=== PATIENT | male | born 1935 | race Two or more races ===

== ENCOUNTER 2016-08-15 17:14 | Emergency (ER) | payer OTHER ==
[~2016-08-15] VITALS: Ht 170.2 cm; Wt 77.1 kg
[2016-08-15 17:26] VITALS: BP 111/71
[2016-08-15 17:45] LABS: Basophils # (auto) 0 uL; Basophils % (auto) 0.3 % (0.0-2.0); Eosinophils # (auto) 0.2 uL; Eosinophils % (auto) 1.7 % (0.0-7.0); Hemoglobin 11.2 g/dL (13.5-17.5); Lymphocytes # (auto) 1.7 uL; Mean Corpuscular Hemoglobin 30.2 pg (28.0-32.0); Mean Corpuscular Hgb Conc. 31.1 g/dL (32.0-36.0); Mean Corpuscular Volume 96.9 fL (80.0-100.0); Mean Platelet Volume 8.1 fL (7.4-10.4); Monocytes # (auto) 0.8 uL; Monocytes % (auto) 8.2 % (0.0-12.0); Neutrophils # (auto) 7.4 uL; Neutrophils % (auto) 72.8 % (37.0-80.0); Platelet Count (auto) 365 10^3/uL (140-450); Red Cell Distribution Width 14.2 % (11.6-16.0); White Blood Cell 10.1 10^3/uL (4.4-10.8)
[2016-08-15 18:04] LABS: Albumin 3.6 g/dL (3.4-5.0); BUN/Creatinine Ratio 14.3; Calcium 8.7 mg/dL (8.5-10.1); Potassium 4.7 mmol/L (3.5-5.1)
[2016-08-15 18:07] LABS: Bilirubin, Total 0.4 mg/dL (0.2-1.0); Total Protein 7.5 g/dL (6.4-8.2)
== END 2016-08-15 21:39 | disposition left against medical advice (07) ==
LOC: ER 17:22
DX: R05 Cough (principal); Z53.21 Procedure and treatment not carried out due to patient leaving prior to being seen by health care provider
CPT/HCPCS: 36415; 71020; 80053; 85025

== ENCOUNTER 2018-02-15 11:43 | Inpatient (IN) | payer OTHER ==
[~2018-02-15] VITALS: Ht 170.2 cm; Wt 72.0 kg
[2018-02-15 12:35] LABS: Basophils # (auto) 0.2 uL; Eosinophils # (auto) 0 uL; Lymphocytes # (auto) 0.3 uL; Monocytes # (auto) 0.8 uL; Red Cell Distribution Width 15.1 % (11.8-14.3)
[2018-02-15 12:38] LABS: Basophils % (auto) 0.7 % (0.0-2.0); Hematocrit 24.7 % (41.0-53.0); Hemoglobin 8.6 g/dL (13.5-17.5); Lymphocytes % (auto) 1.2 % (10.0-50.0); Mean Corpuscular Hemoglobin 32.9 pg (28.0-32.0); Mean Corpuscular Hgb Conc. 34.7 g/dL (32.0-36.0); Mean Corpuscular Volume 94.9 fL (80.0-100.0); Monocytes % (auto) 3.3 % (0.0-12.0); Neutrophils % (auto) 94.8 % (37.0-80.0); Platelet Count (auto) 374 10^3/uL (140-450); White Blood Cell 25.3 10^3/uL (4.4-10.8)
[2018-02-15] MEDS ORDERED: SODIUM CHLORIDE 0.9% 1,000 ML IVB ONE (12:40)
[2018-02-15] MEDS ORDERED: ACETAMINOPHEN 325 MG TAB PO ONE (12:45)
[2018-02-15 12:56] LABS: Albumin 2.1 g/dL (3.4-5.0); BUN/Creatinine Ratio 11.5; Calcium 7.3 mg/dL (8.5-10.1); Potassium 4.4 mmol/L (3.5-5.1)
[2018-02-15] MEDS ORDERED: cefTRIAXone 1GM/10ml IVPUSH 10 ML IV ONE (13:00)
[2018-02-15 13:10] LABS: INR 1.05 (0.9-1.15); Partial Thromboplastin Time 28.3 sec (23.78-33.04); Prothrombin Time 11.2 sec (9.27-12.13)
[2018-02-15 13:12] LABS: Total Protein 6.7 g/dL (6.4-8.2)
[2018-02-15] MEDS: MAGNESIUM SULFATE 1GM/100ML 100 ML IV SCH ×3 (13:43→16:39)
[2018-02-15] MEDS ORDERED: NITROGLYCERIN 0.4 MG SL TAB SL PRN (15:45)
[2018-02-15] MEDS ORDERED: PROMETHAZINE HCL 25 MG/ML 1ML IV PRN (15:45)
[2018-02-15] MEDS ORDERED: ALBUTEROL SULF 2.5 MG/0.5ML(0.5%) NEB SOLN NEB PRN (15:45)
[2018-02-15] MEDS ORDERED: PIPERACILLIN-TAZOB 2.25GM 50 ML IV ONE (15:45)
[2018-02-15] MEDS ORDERED: LORazepam 2MG/ML-1ML VIAL IV PRN (15:45)
[2018-02-15] MEDS ORDERED: MORPHINE SULF INJ 2 MG/ML SYRINGE 1ML IV PRN (15:45)
[2018-02-15 16:08] VITALS: BP 85/37
[2018-02-15 16:11] LABS: Amylase 40 U/L (25-115); Lipase 118 U/L (73-393)
[2018-02-15] MEDS: SODIUM CHLORIDE 0.9% 1,000 ML IV SCH (16:43)
[2018-02-15] MEDS: LINEZOLID 600MG/300ML 300 ML IV SCH ×2 (17:04→22:00)
[2018-02-15] MEDS: PIPERACILLIN-TAZOB 2.25GM 50 ML IV SCH (18:00)
[2018-02-16] VITALS (28 sets, daily range): BP systolic 95–132; BP diastolic 50–79
[2018-02-16] MEDS: PIPERACILLIN-TAZOB 2.25GM 50 ML IV SCH ×4 (00:54→22:41)
[2018-02-16 03:55] LABS: Eosinophils # (auto) 0 uL; Eosinophils % (auto) 0.1 % (0.0-7.0); Hematocrit 21.8 % (41.0-53.0); Hemoglobin 7.1 g/dL (13.5-17.5); Mean Corpuscular Hemoglobin 31.1 pg (28.0-32.0); Monocytes # (auto) 0.9 uL; Red Blood Cells 2.29 10^6/uL (4.5-5.90)
[2018-02-16 03:57] LABS: Basophils # (auto) 0.1 uL; Basophils % (auto) 0.4 % (0.0-2.0); Lymphocytes # (auto) 1.5 uL; Lymphocytes % (auto) 7.3 % (10.0-50.0); Mean Corpuscular Hgb Conc. 32.8 g/dL (32.0-36.0); Monocytes % (auto) 4.2 % (0.0-12.0); Neutrophils # (auto) 18.5 uL; Platelet Count (auto) 290 10^3/uL (140-450)
[2018-02-16 04:09] LABS: Urine Bacteria NONE SEEN /hpf (None Seen); Urine Blood 3+ /uL (Negative); Urine WBC 14 /hpf (0 - 3)
[2018-02-16 04:38] LABS: Albumin 1.7 g/dL (3.4-5.0); BUN/Creatinine Ratio 12.5; Bilirubin, Total 2.1 mg/dL (0.2-1.0); Calcium 7.1 mg/dL (8.5-10.1); Potassium 4.4 mmol/L (3.5-5.1)
[2018-02-16] MEDS: SODIUM CHLORIDE 0.9% 1,000 ML IV SCH ×3 (06:22→16:24)
[2018-02-16] MEDS: HYDROmorphone HCL 2 MG/ML VL IV PRN ×2 (08:54→21:05)
[2018-02-16] MEDS: LINEZOLID 600MG/300ML 300 ML IV SCH ×2 (11:00→22:00)
[2018-02-16] MEDS: ENOXAPARIN SOD 30 MG/0.3 ML SYRINGE SC SCH (11:00)
[2018-02-16] MEDS ORDERED: HYDROcodone-ACET 10/325MG TAB PO PRN (13:00)
[2018-02-16] MEDS: ASPirin-EC 325mg tab PO SCH (14:30)
[2018-02-16] MEDS ORDERED: ATORVASTATIN 20 MG TAB PO SCH (22:00)
[2018-02-17] VITALS (26 sets, daily range): BP systolic 100–152; BP diastolic 52–90
[2018-02-17] MEDS: SODIUM CHLORIDE 0.9% 1,000 ML IV SCH ×2 (04:20→09:16)
[2018-02-17 04:26] LABS: Basophils # (auto) 0.1 uL; Basophils % (auto) 0.8 % (0.0-2.0); Eosinophils # (auto) 0.2 uL; Eosinophils % (auto) 1.5 % (0.0-7.0); Hemoglobin 8.5 g/dL (13.5-17.5); Lymphocytes # (auto) 1.1 uL; Lymphocytes % (auto) 9.3 % (10.0-50.0); Mean Corpuscular Hemoglobin 30.4 pg (28.0-32.0); Mean Corpuscular Hgb Conc. 32.6 g/dL (32.0-36.0); Mean Corpuscular Volume 93.1 fL (80.0-100.0); Monocytes # (auto) 0.7 uL; Monocytes % (auto) 5.7 % (0.0-12.0); Neutrophils # (auto) 10.1 uL; Neutrophils % (auto) 82.7 % (37.0-80.0); Platelet Count (auto) 313 10^3/uL (140-450); Red Blood Cells 2.79 10^6/uL (4.5-5.90); White Blood Cell 12.2 10^3/uL (4.4-10.8)
[2018-02-17 04:39] LABS: BUN/Creatinine Ratio 13.8; Calcium 7.4 mg/dL (8.5-10.1); Magnesium 1.9 mg/dL (1.6-2.6); Potassium 4.4 mmol/L (3.5-5.1)
[2018-02-17] MEDS: PIPERACILLIN-TAZOB 2.25GM 50 ML IV SCH ×2 (05:44→14:25)
[2018-02-17] MEDS: ASPirin-EC 325mg tab PO SCH (10:20)
[2018-02-17] MEDS: ENOXAPARIN SOD 30 MG/0.3 ML SYRINGE SC SCH (10:20)
[2018-02-17] MEDS: LINEZOLID 600MG/300ML 300 ML IV SCH (10:30)
[2018-02-17] MEDS ORDERED: ALUM & MAG HYDROX-SIMETH LIQ(MAALOX) 30 ML PO ONE (14:45)
[2018-02-17] MEDS ORDERED: PANTOPRAZOLE 40 MG/10 ML VIAL IV ONE (14:45)
[2018-02-17] MEDS ORDERED: FUROSEMIDE 40 MG/4 ML VIAL IV ONE (14:45)
[2018-02-17] MEDS ORDERED: ESOM40CA39 PO (20:04)
[2018-02-17] MEDS ORDERED: ROSU5TAB5 PO (20:04)
[2018-02-17] MEDS ORDERED: FURO20TA PO (20:04)
[2018-02-17] MEDS ORDERED: CYCL1TAB18 PO (20:04)
[2018-02-17] MEDS ORDERED: ATEN-60 PO (20:04)
[2018-02-17] MEDS ORDERED: NITR0.4S29 SL (20:04)
[2018-02-17] MEDS ORDERED: LEVO50TA7 PO (20:04)
[2018-02-17] MEDS ORDERED: HYDR-4683 PO (20:04)
[2018-02-17] MEDS ORDERED: TAM04C PO (20:04)
[2018-02-17] MEDS ORDERED: CEPH250C PO (20:04)
== END 2018-02-17 20:55 | disposition home or self-care (01) | DRG 871 ==
LOC: ER 11:43 → EDBD 11:43 → TELE 11:44 → ICU WEST 23:39
PROVIDERS: ADMIT Internal Medicine; ATTEND Internal Medicine Geriatric Medicine
PROC: 30233N1 Transfusion of Nonautologous Red Blood Cells into Peripheral Vein, Percutaneous Approach (ICD-10-PCS; principal; 2018-02-16)
DX: A41.9 Sepsis, unspecified organism (principal); G93.41 Metabolic encephalopathy; I21.4 Non-ST elevation (NSTEMI) myocardial infarction; K83.1 Obstruction of bile duct; N17.9 Acute kidney failure, unspecified; N39.0 Urinary tract infection, site not specified; I13.0 Hypertensive heart and chronic kidney disease with heart failure and stage 1 through stage 4 chronic kidney disease, or unspecified chronic kidney disease; D63.8 Anemia in other chronic diseases classified elsewhere; E83.42 Hypomagnesemia; Z95.1 Presence of aortocoronary bypass graft; I25.10 Atherosclerotic heart disease of native coronary artery without angina pectoris; I25.5 Ischemic cardiomyopathy; I25.2 Old myocardial infarction; I48.91 Unspecified atrial fibrillation; I50.9 Heart failure, unspecified; I70.8 Atherosclerosis of other arteries; J44.9 Chronic obstructive pulmonary disease, unspecified; K43.9 Ventral hernia without obstruction or gangrene; K57.90 Diverticulosis of intestine, part unspecified, without perforation or abscess without bleeding; M47.9 Spondylosis, unspecified; Z85.46 Personal history of malignant neoplasm of prostate; N18.9 Chronic kidney disease, unspecified; N47.1 Phimosis; Z82.3 Family history of stroke; Z82.49 Family history of ischemic heart disease and other diseases of the circulatory system; Z90.5 Acquired absence of kidney; R33.9 Retention of urine, unspecified; Z88.6 Allergy status to analgesic agent; Z91.041 Radiographic dye allergy status; Z85.528 Personal history of other malignant neoplasm of kidney; F17.200 Nicotine dependence, unspecified, uncomplicated
CPT/HCPCS: 36415; 51702; 70450; 71045; 72125; 74176; 76705; 76856; 80048; 80053; 80061; 81001; 82150; 82378; 82550; 82962; 83605; 83690; 83735; 84484; 85025; 85610; 85652; 85730; 86301; 86850; 86900; 86901; 86920; 87040; 87077; 87081; 87086; 87186; 93005; 93306; 94761; 96365; 96367; 96375; A6257; C9113; J0696; J2543